=== PATIENT | female | born 1950 | race Caucasian/White ===

== ENCOUNTER 2024-09-15 00:46 | Outpatient (CLI) | payer MEDICARE, SELFPAY ==
--- NOTE | 2024-09-15 09:00 | DI.MRI_ITS ---
Exam(s) MR PELVIS WO EXAM: MR PELVIS WO CLINICAL HISTORY: Evaluate if anything is compressing the sciatic nn, G57.03 TECHNIQUE: Multiplanar multisequence MRI of Pelvis was performed COMPARISON: MR MR LS SPINE WO CONTRAST from 01/08/2024 . No plain films are available for comparison. FINDINGS: The exam is limited by motion and other artifacts. Bones: There is no fracture or contusion pattern. No bone marrow edema is seen. Joints: No significant hip joint effusion is present. The SI joints and symphysis pubis are unremarkable. Musculotendinous structures: No abnormal tendon thickening or evidence of tendon tear. The musculature is symmetric. No abnormal signal within the musculature. No evidence of mass. No abnormality is identified along the course of the sciatic nerves. Intrapelvic structures demonstrate no significant abnormality. No evidence of adenopathy. IMPRESSION: Normal MRI examination of the pelvis. DATA REPOSITORY:
== END 2024-09-15 01:06 ==
PROVIDERS: PCP Nurse Practitioner Family; Visit Provider Preventive Medicine Occupational Medicine
DX: G57.03 Lesion of sciatic nerve, bilateral lower limbs (principal)
CPT/HCPCS: 72195

== ENCOUNTER 2024-09-28 15:46 | Emergency (ER) | payer MEDICARE, SELFPAY ==
[2024-09-28 15:52] VITALS: BP 161/76; PULSE 81; RESP 20; TEMP 36.8; O2SAT 93
--- NOTE | 2024-09-28 16:27 | ED.GENADUL_ITS ---
Discharge Plan Disposition Patient Disposition: Home Condition: Stable Discharge Details Clinical Impression: Piriformis syndrome of both sides Primary Care Provider: Zulma Crowe ED Provider: Armando Johnson Home Meds and New Rx's Prescriptions: New diclofenac sodium 1 % gel 2 g topical QID Qty: 50 0RF Rx Instructions: apply to single elbow, wrist or hand; for hand includes palm/fingers/back of hand methocarbamol 500 mg tablet 500 mg PO QID Qty: 30 0RF Continued alprazolam 0.5 mg tablet 0.5 mg PO BID calcium carbonate-vitamin D3 [Calcium 600 + D(3)] 2 tab PO DAILY lorazepam 0.5 mg tablet 0.5 mg PO DAILY PRN ascorbic acid (vitamin C) 500 mg capsule 500 mg PO DAILY Discharge Instructions Instructions: Diclofenac (Topical), Methocarbamol, Sciatica Exercises, Sciatica ED Additional Instructions: You were seen in the emergency department for your known sciatica. I reviewed both the recent MRIs, you have diffuse degenerative disc disease in the lumbar spine, your MRI from 09/15 was negative for any acute abnormality. As we discussed need to be taking 650 mg Tylenol every 6 hours like clockwork, apply the topical diclofenac gel to the area of pain 3-4 times per day that I sent to your pharmacy, try the methocarbamol which is a nonsedating muscle relaxer, follow-up with physical therapy visits and seek a primary care referral to orthospine at [facility] for possible steroid injections, see if he can get a referral to the pain clinic here as well as they can do some of these adjunct chronic pain therapies. Please return to the emergency department for motor deficits of your lower extremities, loss of bowel in your pants without noticing, inability to urinate. Reviewed MRI at [facility] from 01/20: Exam: MR Lumbar Spine Without Contrast Exam date and time: 01/08/2024 1:00 PM Age: 73 years old Clinical indication: Low back pain, unspecified; Low back pain, unspecified; Additional info: Radiculopathy TECHNIQUE: Imaging protocol: Magnetic resonance imaging of the lumbar spine without contrast. COMPARISON: RF XR LS SPINE 2-3 VIEWS 08/11/2022 2:25 PM FINDINGS: Bones/joints: Unremarkable. No fracture. Normal alignment. Spinal cord: Visualized cord, conus medullaris and cauda equina are unremarkable without compression. L1-L2: Partial disc desiccation. Posterior mild circumferential disc bulge. Mild bilateral facet arthrosis. No significant spinal canal stenosis. No significant foraminal stenosis. L2-L3: Partial disc desiccation. Posterior mild circumferential disc bulge. Mild bilateral facet arthrosis. No significant spinal canal stenosis. No significant foraminal stenosis. L3-L4: Partial disc desiccation. Posterior mild circumferential disc bulge. Mild bilateral facet arthrosis. Mild bilateral ligamentum. Mild spinal canal stenosis. No significant foraminal stenosis. L4-L5: Partial disc desiccation. Posterior mild circumferential disc bulge. Possible annular fissure. Moderate bilateral facet arthrosis. Mild to moderate bilateral ligamentum flavum hypertrophy. Elvz-ix-jrlisjhy spinal canal stenosis. Moderate left foraminal stenosis. No significant right foraminal stenosis. L5-S1: Partial disc desiccation. Posterior mild circumferential disc bulge. Mild bilateral facet arthrosis. No significant spinal canal stenosis. No significant foraminal stenosis. Soft tissues: Atherosclerotic disease. IMPRESSION: 1. Multilevel discogenic and osteogenic degenerative change most significant at L4-L5 where there is bdje-fa-ysppsnwe spinal canal stenosis and moderate left foraminal stenosis. 2. Annular fissure at L4-L5. Reviewed MRI outpatient study of pelvis from 09/15: EXAM: MR PELVIS WO CLINICAL HISTORY: Evaluate if anything is compressing the sciatic nn, G57.03 TECHNIQUE: Multiplanar multisequence MRI of Pelvis was performed COMPARISON: MR MR LS SPINE WO CONTRAST from 01/08/2024 . No plain films are available for comparison. FINDINGS: The exam is limited by motion and other artifacts. Bones: There is no fracture or contusion pattern. No bone marrow edema is seen. Joints: No significant hip joint effusion is present. The SI joints and symphysis pubis are unremarkable. Musculotendinous structures: No abnormal tendon thickening or evidence of tendon tear. The musculature is symmetric. No abnormal signal within the musculature. No evidence of mass. No abnormality is identified along the course of the sciatic nerves. Intrapelvic structures demonstrate no significant abnormality. No evidence of adenopathy. IMPRESSION: Normal MRI examination of the pelvis. Care Plan Goals: Reviewed MRI at [facility] from 01/20: Exam: MR Lumbar Spine Without Contrast Exam date and time: 01/08/2024 1:00 PM Age: 73 years old Clinical indication: Low back pain, unspecified; Low back pain, unspecified; Additional info: Radiculopathy TECHNIQUE: Imaging protocol: Magnetic resonance imaging of the lumbar spine without contrast. COMPARISON: RF XR LS SPINE 2-3 VIEWS 08/11/2022 2:25 PM FINDINGS: Bones/joints: Unremarkable. No fracture. Normal alignment. Spinal cord: Visualized cord, conus medullaris and cauda equina are unremarkable without compression. L1-L2: Partial disc desiccation. Posterior mild circumferential disc bulge. Mild bilateral facet arthrosis. No significant spinal canal stenosis. No significant foraminal stenosis. L2-L3: Partial disc desiccation. Posterior mild circumferential disc bulge. Mild bilateral facet arthrosis. No significant spinal canal stenosis. No significant foraminal stenosis. L3-L4: Partial disc desiccation. Posterior mild circumferential disc bulge. Mild bilateral facet arthrosis. Mild bilateral ligamentum. Mild spinal canal stenosis. No significant foraminal stenosis. L4-L5: Partial disc desiccation. Posterior mild circumferential disc bulge. Possible annular fissure. Moderate bilateral facet arthrosis. Mild to moderate bilateral ligamentum flavum hypertrophy. Hibh-iw-ozvodiyd spinal canal stenosis. Moderate left foraminal stenosis. No significant right foraminal stenosis. L5-S1: Partial disc desiccation. Posterior mild circumferential disc bulge. Mild bilateral facet arthrosis. No significant spinal canal stenosis. No significant foraminal stenosis. Soft tissues: Atherosclerotic disease. IMPRESSION: 1. Multilevel discogenic and osteogenic degenerative change most significant at L4-L5 where there is syub-of-ejgoxxca spinal canal stenosis and moderate left foraminal stenosis. 2. Annular fissure at L4-L5. Reviewed MRI outpatient study of pelvis from 09/15: EXAM: MR PELVIS WO CLINICAL HISTORY: Evaluate if anything is compressing the sciatic nn, G57.03 TECHNIQUE: Multiplanar multisequence MRI of Pelvis was performed COMPARISON: MR MR LS SPINE WO CONTRAST from 01/08/2024 . No plain films are available for comparison. FINDINGS: The exam is limited by motion and other artifacts. Bones: There is no fracture or contusion pattern. No bone marrow edema is seen. Joints: No significant hip joint effusion is present. The SI joints and symphysis pubis are unremarkable. Musculotendinous structures: No abnormal tendon thickening or evidence of tendon tear. The musculature is symmetric. No abnormal signal within the musculature. No evidence of mass. No abnormality is identified along the course of the sciatic nerves. Intrapelvic structures demonstrate no significant abnormality. No evidence of adenopathy. IMPRESSION: Normal MRI examination of the pelvis. Referrals: Zulma Crowe [Primary Care Provider, Medicine] Pipe Shankar DO [OSTEOPATHIC DOCTOR, Pain Medicine] [facility] General Date/Time Provider Initiated Documentation: 09/28/24 16:25 . HPI Narrative: 74 year-old female presents to ED today by known sciatica- wanting results from recent outpatient MRI with a chief complaint of chronic low back pain, with known disc disease, recent MRI here of the pelvis for piriformis syndrome. Quality described as numbness, pain, stating she doesn't know when she's having BMs but is doing so on the toilet, denies urinary retention, no radiation to new trauma, falls, inability to move legs, sensory deficits in legs. Severity is described as moderate to severe. Palliating factors include nothing specific- has tried cyclobenzaprine- states it makes her too loopy. Provoking factors include movement. Events leading up to the incident/Associated Symptoms: Patient has tried PT, has seen Dr. Shankar in pain clinic, is not open to lumbar surgery. Patient not anticoagulated. Related Data Home Medications ?Medication ?Instructions ?Recorded ?Confirmed alprazolam 0.5 mg tablet 0.5 mg PO BID 07/01/2409/28 ascorbic acid (vitamin C) 500 mg 500 mg PO DAILY 07/0109/28/24 capsule calcium carbonate-vitamin D3 2 tab PO DAILY 07/01/24 0 09/28/24 lorazepam 0.5 mg tablet 0.5 mg PO DAILY PRN 07/01/24 09/28/24 diclofenac sodium 1 % topical gel 2 g topical QID #50 grams 09/28/24 methocarbamol 500 mg tablet 500 mg PO QID #30 tabs 05/24 Previous Rx's ?Medication ?Instructions ?Recorded diclofenac sodium 1 % topical gel 2 g topical QID #50 grams 09/28/24 methocarbamol 500 mg tablet 500 mg PO QID #30 tabs 05/24 Allergies Allergy/AdvReac Type Severity Reaction Status Date / Time albuterol Allergy Unknown Other (See Verified 09/28/24 15:50 Comment) celecoxib Allergy Unknown Other (See Verified 09/28/24 15:50 Comment) codeine Allergy Unknown Other (See Verified 09/28/24 15:50 Comment) ibuprofen Allergy Unknown Other (See Verified 09/28/24 15:50 Comment) General Stated Complaint: Nk/Back Pain RAMON: 3 Review of Systems All systems reviewed & are unremarkable except as noted in HPI and below Exam Narrative Exam Narrative: GENERAL APPEARANCE: Frail, non-toxic, awake and alert, atraumatic, no acute distress. SKIN: Warm, pink, dry, intact, without rashes/lesions/ulcerations. HEAD: Normocephalic, atraumatic, normal hair distribution for gender/age. EYES: Normal conjunctiva, no exudates on lids/lashes. ENT: Nares patent, no circumoral cyanosis, no facial swelling NECK: Supple, trachea midline, painless cervical ROM. LUNGS/CHEST: Non-labored respirations, normal A/P diameter, symmetrical expansion, no chest wall deformity HEART (CV/PV): No peripheral edema, no JVD. ABDOMEN: Soft, non-distended, no guarding. MSK: Normal ROM, no swelling/deformity to bilateral UEs or LEs, moving all extremities without weakness, no cyanosis, diffuse lumbar back tenderness without crepitus or step-off, ambulating well with strength 5/5 and symmetric in both lower extremities, no saddle anesthesia, sensation intact, loss of lumbar lordosis. NEURO: Mental Status AAOx4 - alert to person, place, time, events No facial droop, no forehead involvement. Motor: No focal weakness - strength 5/5 in bilateral UEs and LEs, proximal and distal, symmetric. Sensory: sensation intact to light touch globally. Gait normal: patient ambulated without ataxia into ED room. PSYCH: euthymic, cooperative, pleasant, appropriate speech Course Vital Signs Vital signs: Vital Signs Temperature 36.8 C 09/28/24 15:52 Pulse 81 09/28/24 15:52 Respiratory Rate 20 09/28/24 15:52 Blood Pressure 161/76 H 09/28/24 15:52 Pulse Oximetry 93 09/28/24 15:52 Temperature 36.8 C 09/28/24 15:52 Temperature Source Oral 09/28/24 15:52 Pulse 81 09/28/24 15:52 Respiratory Rate 20 09/28/24 15:52 Blood Pressure 161/76 H 07/02/25 15:52 Blood Pressure Position Standing 09/28/24 15:52 Pulse Oximetry 93 09/28/24 15:52 Oxygen Delivery Method Room Air 09/28/24 15:52 Oxygen Flow Rate 0 09/28/24 15:52 Pain Level 10 09/28/24 15:52 Medical Decision Making This dictation utilizes [id number] dictation software and may contain unedited grammatical errors. 74 year-old female presents to ED today by known sciatica- wanting results from recent outpatient MRI with a chief complaint of chronic low back pain, with known disc disease, recent MRI here of the pelvis for piriformis syndrome. Quality described as numbness, pain, stating she doesn't know when she's having BMs but is doing so on the toilet, denies urinary retention, no radiation to new trauma, falls, inability to move legs, sensory deficits in legs. Severity is described as moderate to severe. Palliating factors include nothing specific- has tried cyclobenzaprine- states it makes her too loopy. Provoking factors include movement. Events leading up to the incident/Associated Symptoms: Patient has tried PT, has seen Dr. Shankar in pain clinic, is not open to lumbar surgery. Patients' medical history: Degenerative disc disease, sciatica, piriformis syndrome, COPD. Family and social history: Lives at home with . Pertinent exam findings / vital signs include diffuse lumbar back tenderness without crepitus or step-off, ambulating well with strength 5/5 and symmetric in both lower extremities, no saddle anesthesia, sensation intact. Differential / pathologies of concern include sciatica, piriformis syndrome, unlikely cauda equina. Diagnostic studies of: - Provided patient with her prior MRI results. Interventions of: - Discussed with the patient, we will try methocarbamol as cyclobenzaprine has not been well-tolerated, prescribed topical diclofenac. ED Course/Assessment/Plan: 74-year-old female presents with chronic low back pain, requesting MRI results as her doctor was out of town and she cannot obtain them, return to optimize her outpatient regimen but she has no signs of spinal emergency, the patient will follow-up with pain care, I discussed at length that conservative management would be the ideal way to go as she is unlikely to be a surgical candidate, the patient was open to trying methocarbamol as cyclobenzaprine made her too loopy, she has no signs of cauda equina or NV compromise Findings not consistent with cauda equina, new trauma, fracture Disposition of Sciatica. Patient verbalized understanding of the plan and return to ED criteria and engaged in shared decision making. Medical Records Medical records reviewed: Yes I reviewed the patient's medical records. Imaging Data Radiologic Study: Attestation: I personally reviewed and interpreted this imaging study as follows: Imaging: MRI My impression: Reviewed MRI at [facility] from 01/20: Exam: MR Lumbar Spine Without Contrast Exam date and time: 01/08/2024 1:00 PM Age: 73 years old Clinical indication: Low back pain, unspecified; Low back pain, unspecified; Additional info: Radiculopathy TECHNIQUE: Imaging protocol: Magnetic resonance imaging of the lumbar spine without contrast. COMPARISON: RF XR LS SPINE 2-3 VIEWS 08/11/2022 2:25 PM FINDINGS: Bones/joints: Unremarkable. No fracture. Normal alignment. Spinal cord: Visualized cord, conus medullaris and cauda equina are unremarkable without compression. L1-L2: Partial disc desiccation. Posterior mild circumferential disc bulge. Mild bilateral facet arthrosis. No significant spinal canal stenosis. No significant foraminal stenosis. L2-L3: Partial disc desiccation. Posterior mild circumferential disc bulge. Mild bilateral facet arthrosis. No significant spinal canal stenosis. No significant foraminal stenosis. L3-L4: Partial disc desiccation. Posterior mild circumferential disc bulge. Mild bilateral facet arthrosis. Mild bilateral ligamentum. Mild spinal canal stenosis. No significant foraminal stenosis. L4-L5: Partial disc desiccation. Posterior mild circumferential disc bulge. Possible annular fissure. Moderate bilateral facet arthrosis. Mild to moderate bilateral ligamentum flavum hypertrophy. Hdkb-ue-mhrdwgpe spinal canal stenosis. Moderate left foraminal stenosis. No significant right foraminal stenosis. L5-S1: Partial disc desiccation. Posterior mild circumferential disc bulge. Mild bilateral facet arthrosis. No significant spinal canal stenosis. No significant foraminal stenosis. Soft tissues: Atherosclerotic disease. IMPRESSION: 1. Multilevel discogenic and osteogenic degenerative change most significant at L4-L5 where there is lldf-me-teatvoad spinal canal stenosis and moderate left foraminal stenosis. 2. Annular fissure at L4-L5. Reviewed MRI outpatient study of pelvis from 09/15: EXAM: MR PELVIS WO CLINICAL HISTORY: Evaluate if anything is compressing the sciatic nn, G57.03 TECHNIQUE: Multiplanar multisequence MRI of Pelvis was performed COMPARISON: MR MR LS SPINE WO CONTRAST from 01/08/2024 . No plain films are available for comparison. FINDINGS: The exam is limited by motion and other artifacts. Bones: There is no fracture or contusion pattern. No bone marrow edema is seen. Joints: No significant hip joint effusion is present. The SI joints and symphysis pubis are unremarkable. Musculotendinous structures: No abnormal tendon thickening or evidence of tendon tear. The musculature is symmetric. No abnormal signal within the musculature. No evidence of mass. No abnormality is identified along the course of the sciatic nerves. Intrapelvic structures demonstrate no significant abnormality. No evidence of adenopathy. IMPRESSION: Normal MRI examination of the pelvis. PFSH All Active Problems (Updated 09/28/24 @ 16:33 by EARLE Virgen) Piriformis syndrome of both sides (Acute) Medical History Wrist joint pain Vitamin D deficiency Piriformis syndrome of left side Perennial allergic rhinitis Pain in thoracic spine Age related osteoporosis Nicotine dependence Low back pain Generalized anxiety disorder Disorder of bone Depressive disorder Chronic obstructive lung disease Backache Acute stress disorder Surgical History Hx of tonsillectomy H/O: section Family History Father Low blood pressure Myocardial infarction Social History Smoking/Tobacco Use Status: Current every day Tobacco Type: cigarettes Smoking risk assessment performed?: Yes Alcohol Intake: never Drug use: Never Housing: house Do you feel safe at home: Yes Do you feel safe in your relationship?: Yes
[2024-09-28] MEDS: Lidocaine 5% Patch 1 PATCH TP (16:53)
[2024-09-28] MEDS: Ketorolac 30 MG/ML VIAL IM (16:53)
[2024-09-28] MEDS: Methocarbamol 500 MG TAB PO (16:54)
[2024-09-28] MEDS: Acetaminophen 325 MG TAB 650 MG PO (16:54)
== END 2024-09-28 17:01 | disposition home or self-care (01) ==
LOC: ER 17:02
PROVIDERS: Emergency Provider Physician Assistant; PCP Nurse Practitioner Family
DX: G57.03 Lesion of sciatic nerve, bilateral lower limbs (principal); M51.369 Other intervertebral disc degeneration, lumbar region without mention of lumbar back pain or lower extremity pain; J44.9 Chronic obstructive pulmonary disease, unspecified; F17.210 Nicotine dependence, cigarettes, uncomplicated
CPT/HCPCS: 96372; 99283; J1885

== ENCOUNTER 2024-12-01 09:49 | Outpatient (CLI) | payer MEDICARE, SELFPAY ==
[2024-12-01 09:54] VITALS: BP 158/53; PULSE 77; RESP 19; TEMP 36.3; O2SAT 92
[2024-12-01 10:25] VITALS: PULSE 91; O2SAT 93
[2024-12-01 10:30] VITALS: PULSE 90; O2SAT 95
[2024-12-01 10:40] VITALS: PULSE 84; O2SAT 94
[2024-12-01] MEDS: Lidocaine 2% Pres-Free 5 ML VIAL IJ (10:56)
[2024-12-01] MEDS: methylPREDNISolone ACETATE 40 MG/ML VIAL IJ (10:56)
[2024-12-01] MEDS: Nerve Block Tray 1 EACH MC (10:56)
--- NOTE | 2024-12-01 11:08 | PDOC.PAIN_ITS ---
Date of service: 12/01/24 Time of Service: 11:08 US Guided Injections Type of Ultrasound Guided Injection: Bilateral Piriformis muscle Buttock and Leg Bilateral Trigger Point Injection Pre-Procedural Evaluation Tenderness to palpation over the bilateral buttocks Referral Patient has been referred to the [facility] for Bilateral Piriformis muscle Buttock Trigger Point Injection for a chief complaint of Bilateral buttock pain Pre-Procedural Pain Score Pre-procedural pain score: 7/10 Reason for Exam Pain in the bilateral buttocks radiating down the bilateral legs Patient Interview Patient was interviewed and medical record reviewed: Yes There were no contraindications to performing an US guided procedure. Risks,expected side effects, potential benefits were reviewed. The patient consent form was signed and witnessed. Standard time out procedure was performed. Procedure Description No sedation given for procedure Patient was placed in the prone position and the following Pulse Ox applied. Pre-Procedure ultrasound scanning performed using a Linear 9 MHz probe Site Preparation Chloroprep Local Anesthesia Skin and subcutaneous tissues anesthetized with: 3 mL of Lidocaine 2%. A 21 G 3.5 Pajunk ultrasound needle was placed under live US guidance using an in-plane approach to the target area. After visualization of the needle tip at the target area Dep-Medrol 80mg per cc were used. Total of Injectate/Medication Note: 1 cc of Depomedrol and 7 cc of 2% Lidocaine. Negative aspiration for blood. Severance were removed without difficulty. Ultrasound images were captured and stored. Patient Mental Status Patient was alert and awake during procedure Vital Signs Vital signs were stable throughout the procedure and recorded by nursing. Follow Up/Discharge Follow up plans and appointments were discussed with patient. Post procedure instruction was given as documented in nursing documentation. Discharge criteria met and patient discharged from Pain Management Center: Yes Post Procedure Pain Post Procedure Pain: 0/10 Patient tolerated procedure well Procedure Outcome: Successful Non US Guided Injections Procedure Description Patient was placed in the prone position Post Procedure Pain Post Procedure Pain: 0/10 Coding Conscious Sedation used for procedure: No CPT Codes: TPI Single/Multi 1 or 2 Muscles *BILATERAL* - [id number] ([id number]) Additional Codes: Visualization of the needle tip - Ultrasound images captured/stored: Yes ([id number]) Date of Service ([id number]) Date of service: 12/01/24 Diagnoses: Muscle pain
== END 2024-12-01 09:50 | disposition home or self-care (01) ==
PROVIDERS: PCP Nurse Practitioner Family; Visit Provider Preventive Medicine Occupational Medicine
DX: M79.18 Myalgia, other site (principal); M79.604 Pain in right leg; M79.605 Pain in left leg
CPT/HCPCS: 20552; 20553; 76942; J1010

== ENCOUNTER → 2025-01-19 14:15 | Outpatient (BNVA) | payer MEDICARE, SELFPAY | PROVIDERS: PCP Nurse Practitioner Family; Referring Provider Nurse Practitioner Family; Visit Provider Internal Medicine Pulmonary Disease | DX: J44.9 Chronic obstructive pulmonary disease, unspecified (principal); J96.12 Chronic respiratory failure with hypercapnia; J96.11 Chronic respiratory failure with hypoxia; Z72.0 Tobacco use | CPT/HCPCS: 99215; G0296 ==

== ENCOUNTER 2025-01-19 15:15 | Outpatient (REF) | payer MEDICARE, SELFPAY ==
[2025-01-19 15:16] LABS: BE 11 mmol/L (-2-3); HCO3 35 mmol/L (22-26)
[2025-01-19 15:17] LABS: FIO2L 4 L
== END 2025-01-19 15:16 | disposition home or self-care (01) ==
LOC: LBN 15:15
PROVIDERS: PCP Nurse Practitioner Family; Visit Provider Internal Medicine Pulmonary Disease
DX: J44.9 Chronic obstructive pulmonary disease, unspecified (principal)
CPT/HCPCS: 82805

== ENCOUNTER 2025-01-23 02:49 | Outpatient (CLI) | payer MEDICARE, SELFPAY ==
[2025-01-23] MEDS: Inhaler, Assist Device 1 EACH MC (14:12)
[2025-01-23] MEDS: Levalbuterol HFA 15 GM INH 4 PUFF IH (14:12)
--- NOTE | 2025-01-24 07:59 | W.PFT ---
Date of service: 01/23/25 Time of Service: 12:59 Pulmonary Function Test Result Indications: COPD, dyspnea Impression 1. Good patient effort was noted. ATS standards for reproducibility were met. Difficulty with DLCO testing was noted. Patient was unable to perform plethysmography. 2. Spirometry showed moderate obstructive lung disease with an FEV1 of 52% (0.81 L) 3. Following the administration of a bronchodilator there was not a significant response 4. DLCO was severely reduced at 43%, however, difficulty with this portion of testing was noted. Should be interpreted with caution
== END 2025-01-23 02:50 | disposition home or self-care (01) ==
LOC: RT 02:49
PROVIDERS: PCP Nurse Practitioner Family; Visit Provider Internal Medicine Pulmonary Disease
DX: J44.9 Chronic obstructive pulmonary disease, unspecified (principal); R06.00 Dyspnea, unspecified
CPT/HCPCS: 94060; 94729

== ENCOUNTER → 2025-02-22 14:00 | Outpatient (BNVA) | payer MEDICARE, SELFPAY | PROVIDERS: PCP Nurse Practitioner Family; Referring Provider Nurse Practitioner Family; Visit Provider Internal Medicine Pulmonary Disease | DX: J44.9 Chronic obstructive pulmonary disease, unspecified (principal); J96.12 Chronic respiratory failure with hypercapnia; J96.11 Chronic respiratory failure with hypoxia; F17.210 Nicotine dependence, cigarettes, uncomplicated; R91.1 Solitary pulmonary nodule | CPT/HCPCS: 99214; G0296; 99406 ==